=== PATIENT | male | born 1980 | race Caucasian/White ===

== ENCOUNTER 2017-03-23 21:33 | Observation (INO) | payer BC ==
[2017-03-23 22:22] LABS: #Basophils 0.1 thou/uL (0.0-0.2); #Eosinphils 0.2 thou/uL (0.0-0.7); #Lymphocytes 2.3 thou/uL (1.20-3.40); #Monocytes 0.3 thou/uL (0.11-0.59); #Neutrophils 4.3 thou/uL (1.40-6.50); %Basophils 1.3 % (0.0-1.0); %Eosinophils 3.2 % (0.0-10.0); %Monocytes 4.3 % (0.0-10.0); %Neutrophils 59.2 % (42.0-75.0); Mean Corpuscular HGB CONC 34.5 g/dL (32.0-36.0); Mean Corpuscular Hemoglobin 31.6 pg (27.0-31.0); Mean Corpuscular Volume 91.5 fl (80.0-94.0); Mean Platelet Volume 7.9 fL (7.4-10.4); Platelet Count 256 thou/uL (130-400); RBC Distribution Width 11.5 % (11.5-14.5); Red Blood Cell (RBC) Count 4.43 mill/uL (4.70-6.10); White Blood Cell (WBC) Count 7.3 thou/uL (4.8-10.8)
[2017-03-23 22:30] LABS: INR-International Normal Ratio 1.1; PTT 24.7 SEC (22.9-36.1); Prothrombin Time 14.1 SEC (12.0-14.7)
[2017-03-23 22:33] LABS: ALT (SGPT) 35 U/L (8-55); AST (SGOT) 22 U/L (5-34); Albumin 4.2 g/dL (3.5-5.0); Alkaline Phosphatase 68 U/L (40-150); Anion Gap 15 mmol/L (10-20); BUN (Urea Nitrogen) 14 mg/dL (8.9-20.6); Bilirubin, Total 0.5 mg/dL (0.2-1.2); Calc. Creatinine Clearance 0 mL/min (70-130); Calcium 9.2 mg/dL (7.8-10.44); Carbon Dioxide 23 mmol/L (22-29); Chloride 106 mmol/L (98-107); Estimated GFR-MDRD Greater than 90; Globulin 3.3 g/dL (2.4-3.5); Glucose 111 mg/dL (70-105); Potassium 3.5 mmol/L (3.5-5.1); Protein, Total 7.5 g/dL (6.0-8.3); Sodium 140 mmol/L (136-145)
[2017-03-24] MEDS ORDERED: GoLYTELY 4,000 ml Bottle PO SCH (00:30)
[2017-03-24] MEDS ORDERED: Ondansetron HCl/PF 4 MG/2 ML Vial IVP PRN ×2 (01:18→14:45)
[2017-03-24] MEDS ORDERED: Ondansetron ODT 4 MG TAB SL PRN (01:18)
[2017-03-24] MEDS ORDERED: Acetaminophen 325 MG TAB PO PRN (01:18)
[2017-03-24 01:53] VITALS: BMI 27.4
--- NOTE | 2017-03-24 03:36 | CON ---
DATE OF CONSULTATION: 03/23/2017 REASON FOR CONSULTATION: Hematochezia. CONSULTING PHYSICIAN: Dr. Ng HISTORY OF PRESENT ILLNESS: The patient is a 36-year-old male with past medical history of GERD, gou t, seasonal allergies and chronic diarrhea, presenting with complaints of hematochezia. He was recen tly seen in the GI clinic for the evaluation of chronic diarrhea. As part of the workup, a colonosco py was recommended and performed on 03/23/2017. During the course of the colonoscopy a large polyp w as seen in the sigmoid colon at approximately 35 cm past the anal verge. This polyp was subsequently removed with snare cautery polypectomy, but given the increased diameter of the polyp stalk a Hemocl ip was also placed; however, later yesterday evening he experienced onset of bright red blood per rec judy present both in the toilet and on the toilet paper. The amount of blood was approximately one cobos lf cup per bowel movement with approximately 3 bloody bowel movements since the colonoscopy earlier y morning. After the last bowel movement he did experience increased nausea, diaphoresis, and cold clammy skin that resolved immediately upon going outside into the cold air and has not had a fu rther recurrence. Of note, he has been taking diclofenac and colchicine for management of his gout, but had not taken colchicine since 01/2016 and diclofenac was recently taken approximately 5 days ago . Currently, he denies any nausea, vomiting, fevers, chills, abdominal pain, odynophagia, dysphagia, hematemesis or melena. REVIEW OF SYSTEMS: A 10 category review of systems was obtained with all responses negative except f or the pertinent positives as listed in the HPI. PAST MEDICAL HISTORY: As per HPI. PAST SURGICAL HISTORY: None. FAMILY HISTORY: Great aunt with colon cancer that was diagnosed in her 70s, prostate cancer (father, paternal grandfather), testicular cancer (cousin), and breast cancer (maternal grandmother). SOCIAL HISTORY: He denies any tobacco or illicit drug use. He will drink approximately 1-2 drinks e very 1-2 weeks. PHYSICAL EXAMINATION: VITAL SIGNS: Temperature 99.4, pulse 80, blood pressure 130/81, respiratory rate 17, satting 100% on room air. GENERAL: The patient is lying comfortably in bed in no acute distress. He is alert and oriented x4. NECK: Supple. No JVD noted. CARDIOVASCULAR: Tachycardic rate, but regular rhythm with no discernible murmurs, gallops or rubs. RESPIRATORY: Clear to auscultation bilaterally with no discernible wheezes or rales. ABDOMEN: Normoactive bowel sounds, soft, nontender, nondistended. EXTREMITIES: No cyanosis, clubbing or edema. LABORATORY DATA: CBC with a white blood cell count of 7.3, hemoglobin 14, hematocrit 40.6, platelets 256. Chemistry with a sodium of 140, potassium 3.5, chloride 106, CO2 23, BUN 14, creatinine 0.89, glucose 111, AST 22, ALT 35, alkaline phosphatase 68, total bilirubin 0.5. INR 1.1. IMAGING DATA: No current GI imaging studies are available for review. ASSESSMENT AND PLAN: The patient is a 36-year-old male with past medical history of GERD, gout, seas onal allergies and chronic diarrhea who underwent colonoscopy with polypectomy on 03/23/2017, now pre senting with hematochezia in the post-procedure setting. Post-polypectomy bleed. The patient is presenting with onset of bright red blood per rectum after cobos ving undergone a colonoscopy on 03/23/2017 with the removal of a large polyp within the sigmoid colon . Given the diameter of the polyp removed and the fact that it was a pedunculated polyp, the likelih ood of a vessel within the polyp itself is likely. At this point the most likely reason for his hemat ochezia would be bleeding from the polypectomy site despite the fact that a Hemoclip was placed earli er today to prevent such an occasion. RECOMMENDATIONS: 1. Would continue to trend H&H and transfuse as necessary to maintain an H&H of 7/21. 2. Will administer 2 liters of GoLYTELY as part of bowel prep in preparation for repeat colonoscopy and evaluation of the post-polypectomy site. 3. Would refrain from any anticoagulation for the current time. We will continue to follow. Please call with any questions.
[2017-03-24] MEDS: Sodium Chloride 0.9% 1,000 ML IV SCH ×3 (04:10→21:02)
[2017-03-24 05:01] LABS: #Basophils 0.1 thou/uL (0.0-0.2); #Eosinphils 0.2 thou/uL (0.0-0.7); #Lymphocytes 2.4 thou/uL (1.20-3.40); #Monocytes 0.5 thou/uL (0.11-0.59); #Neutrophils 4.3 thou/uL (1.40-6.50); %Basophils 0.8 % (0.0-1.0); %Eosinophils 2.7 % (0.0-10.0); %Lymphocytes 31.7 % (21.0-51.0); %Monocytes 7.2 % (0.0-10.0); %Neutrophils 57.7 % (42.0-75.0); Hemoglobin 12.6 g/dL (14.0-18.0); Mean Corpuscular HGB CONC 34.7 g/dL (32.0-36.0); Mean Corpuscular Hemoglobin 31.8 pg (27.0-31.0); Mean Corpuscular Volume 91.8 fl (80.0-94.0); Mean Platelet Volume 7.5 fL (7.4-10.4); Platelet Count 242 thou/uL (130-400); RBC Distribution Width 11.5 % (11.5-14.5); Red Blood Cell (RBC) Count 3.97 mill/uL (4.70-6.10); White Blood Cell (WBC) Count 7.5 thou/uL (4.8-10.8)
[2017-03-24 05:19] LABS: ALT (SGPT) 31 U/L (8-55); AST (SGOT) 18 U/L (5-34); Alkaline Phosphatase 66 U/L (40-150); Anion Gap 11 mmol/L (10-20); BUN (Urea Nitrogen) 15 mg/dL (8.9-20.6); Bilirubin, Total 0.5 mg/dL (0.2-1.2); Calc. Creatinine Clearance 162 mL/min (70-130); Calcium 9.3 mg/dL (7.8-10.44); Carbon Dioxide 29 mmol/L (22-29); Chloride 107 mmol/L (98-107); Estimated GFR-MDRD Greater than 90; Globulin 2.9 g/dL (2.4-3.5); Glucose 102 mg/dL (70-105); Potassium 4.1 mmol/L (3.5-5.1); Protein, Total 6.9 g/dL (6.0-8.3); Sodium 143 mmol/L (136-145)
[2017-03-24 05:54] LABS: INR-International Normal Ratio 1.1; Prothrombin Time 13.9 SEC (12.0-14.7)
--- NOTE | 2017-03-24 06:17 | HP ---
CHIEF COMPLAINT: Rectal bleeding. HISTORY OF PRESENT ILLNESS: A 36-year-old male with minimal past medical history who recently had a colonoscopy 03/23/2017 for persistent diarrhea. The patient states that he had a polyp removed and s ubsequently a staple placed in that area. Earlier today he went to the bathroom, had a pressure sens ation which he states is consistent with his usual abdominal pressure sensation associated with his d iarrhea. However, when he went to have a bowel movement he passed a clot-like material instead. He subsequently presented to the emergency department for rectal bleeding. At the time of my evaluation, the patient has no new complaints and is able to recall the history as noted above. REVIEW OF SYSTEMS: As per HPI. CONSTITUTIONAL: No fevers, no chills, no recent weight changes. HEENT: No headaches, dizziness or vision changes. CARDIOVASCULAR: No chest pain, dyspnea with exertion, chest pressure, left arm numbness or tingling. RESPIRATORY: No shortness of breath. No recent cough. No recent sinus congestion, postnasal drip. GASTROINTESTINAL: As per above. GENITOURINARY: Denies any dysuria or change in urine and quality. No new odor. MUSCULOSKELETAL: Denies any myalgias, arthralgias, or generalized fatigue or malaise that is new. Remainder of review of systems otherwise negative. PAST MEDICAL HISTORY: As per above. HOME MEDICATIONS: Cetirizine, Zyrtec, diclofenac, epinephrine. ALLERGIES: CLAVULANIC ACID and CASHEWS. FAMILY HISTORY: Denies any known family history of hyperpolyposis or early GI cancer. SOCIAL HISTORY: Denies any alcohol, tobacco or illicit drug use. Mother is with him at bedside. CODE STATUS: Full code status. PHYSICAL EXAMINATION: VITAL SIGNS: Temperature of 97.8, heart rate of 84, blood pressure 144/83, respirations 16, satting 95% on room air. GENERAL: The patient is awake, alert, conversant, lying in the hospital bed in no acute distress. HEENT: Normocephalic, atraumatic. Moist mucous membranes, equal ocular motions are intact. CARDIOVASCULAR: S1, S2. Pulses 2+ bilateral upper extremities, no pitting pedal edema. RESPIRATORY: Clear to auscultation. Reasonable air movement. No wheezes, rales or rhonchi. ABDOMEN: Positive bowel sounds, soft, nontender to palpation. LABORATORY AND IMAGING WBC 7.3, hemoglobin 14.0, hematocrit 40.6, platelets 256. PT 14.1, INR 1.1. Sodium 140, potassium 3.5, chloride 106, bicarbonate 23, BUN 14, creatinine 0.89, glucose 111, calciu m 9.2, total bilirubin 0.5, AST 22, ALT 35, alkaline phosphatase 68, total serum protein 7.5, albumin 4.2. ASSESSMENT AND PLAN: A 36-year-old male presenting with rectal bleed, status post colonoscopy with p olypectomy. 1. Rectal bleed. I appreciate GI consultation. It appears that the patient is currently planned fo r a repeat colonoscopy in the morning. He is currently on a bowel prep. I have discussed consent fo r blood products with the patient and he currently consents for blood products. We have discussed th e risks and benefits of a transfusion should he need it. Serial CBC q.6h., IV fluid 100 mL IV walker l saline. Two large bore IVs. Admit the patient to observation status to telemetry. Thank you for asking me to care for the patient.
[2017-03-24 09:21] LABS: Hemoglobin 11.7 g/dL (14.0-18.0)
[2017-03-24 12:25] LABS: Hemoglobin 8.9 g/dL (14.0-18.0)
[2017-03-24] MEDS ORDERED: Promethazine HCl 25 MG/ML VIAL SLOW IVP PRN (14:45)
[2017-03-24] MEDS ORDERED: Promethazine HCl 25 MG/ML VIAL IM PRN (14:45)
--- NOTE | 2017-03-24 14:59 | OP ---
PREOPERATIVE DIAGNOSIS: Gastrointestinal bleed. DESCRIPTION OF PROCEDURE: After informed consent was obtained, the patient was placed in the left la teral decubitus position. Anesthesia was administered per the Anesthesia Department. Forward-viewin g endoscope was inserted into the rectum. After perianal inspection, rectal exam were normal and pas sed to the cecum with ease. The cecum, ileocecal valve, and appendiceal orifice were normal. The pr ep was fair. Upon withdraw, the right-sided effluent was nonbloody, but the left side became progres sively bloody. In the sigmoid colon, a stalk was noted with a clip on it, this seemed to be the area of the active bleeding. A snare was put around the base of the stalk and the stalk was removed, ach ieving good hemostasis. A clip was then put on the base. The remainder of the sigmoid and rectum we re normal, although not fully visualized secondary to retained blood. ASSESSMENT: 1. Actively bleeding sigmoid stalk -- status post control of hemorrhage with polypectomy of the stal k. 2. Otherwise normal colonoscopy. RECOMMENDATIONS: 1. Serial hemoglobin and hematocrit. 2. Clear liquid diet.
[2017-03-24] MEDS ORDERED: PROPOFOL 200 MG/20 ML VIAL ONE (15:29)
[2017-03-24] MEDS ORDERED: PHENYLEPHRINE-NS 100 MCG/ML 10 ML SYRINGE ONE (15:29)
[2017-03-24 15:41] LABS: Hemoglobin 9.3 g/dL (14.0-18.0); Platelet Count 198 thou/uL (130-400)
[2017-03-24 18:37] LABS: Hemoglobin 8.6 g/dL (14.0-18.0)
--- NOTE | 2017-03-24 21:10 | EKG ---
Test Reason : AFTER CODE GREEN Blood Pressure : / mmHG Vent. Rate : 085 BPM Atrial Rate : 085 BPM P-R Int : 164 ms QRS Dur : 104 ms QT Int : 362 ms P-R-T Axes : 027 051 016 degrees QTc Int : 430 ms Normal sinus rhythm ST elevation, consider early repolarization, pericarditis, or injury Nonspecific T wave abnormality Abnormal ECG No previous ECGs available Confirmed by MELIZA SILVESTRE ([id number]) on 03/24/2017 9:10:25 PM Referred By: CHAN Confirmed By:MELIZA SILVESTRE
[2017-03-25 05:05] LABS: #Eosinphils 0.2 thou/uL (0.0-0.7); #Monocytes 0.3 thou/uL (0.11-0.59); #Neutrophils 2.8 thou/uL (1.40-6.50); %Basophils 0.9 % (0.0-1.0); %Eosinophils 3.4 % (0.0-10.0); %Lymphocytes 37.7 % (21.0-51.0); Hemoglobin 8.2 g/dL (14.0-18.0); Mean Corpuscular HGB CONC 35.1 g/dL (32.0-36.0); Mean Corpuscular Hemoglobin 32.5 pg (27.0-31.0); Mean Corpuscular Volume 92.5 fl (80.0-94.0); Mean Platelet Volume 8.2 fL (7.4-10.4); Platelet Count 185 thou/uL (130-400); RBC Distribution Width 11.7 % (11.5-14.5); Red Blood Cell (RBC) Count 2.52 mill/uL (4.70-6.10); White Blood Cell (WBC) Count 5.3 thou/uL (4.8-10.8)
[2017-03-25 05:20] LABS: Anion Gap 9 mmol/L (10-20); BUN (Urea Nitrogen) 6 mg/dL (8.9-20.6); Calc. Creatinine Clearance 191 mL/min (70-130); Calcium 8.2 mg/dL (7.8-10.44); Carbon Dioxide 26 mmol/L (22-29); Chloride 110 mmol/L (98-107); Estimated GFR-MDRD Greater than 90; Glucose 97 mg/dL (70-105); Magnesium 1.6 mg/dL (1.6-2.6); Potassium 3.8 mmol/L (3.5-5.1); Sodium 141 mmol/L (136-145)
[2017-03-25 07:52] VITALS: BP 129/62
[2017-03-25 07:54] VITALS: TEMP 96.9
--- NOTE | 2017-03-25 09:55 | PRG ---
DATE OF SERVICE: 03/25/2017 GI INPATIENT DAILY PROGRESS NOTE SUBJECTIVE: Sheng did well overnight. He has remained hemodynamically stable and he has had no fur ther bowel movements since just after his colonoscopy yesterday. There is no abdominal pain or feeli ng of fullness, no lightheadedness. Hemoglobin trended down marginally to 8.2, WBC 5.3, platelets 18 5. He is tolerating his diet. OBJECTIVE: VITAL SIGNS: Temperature 96.9, pulse 83, blood pressure 129/62, 96% oxygen saturation on room air. GENERAL: No acute distress. HEART: Regular rate and rhythm. LUNGS: Clear to auscultation bilaterally. ABDOMEN: Soft, nontender. EXTREMITIES: No peripheral edema. LABORATORY STUDIES: Hemoglobin 8.2, WBC 5.3, platelets 185. ASSESSMENT AND PLAN: 1. Post-polypectomy bleeding, status post endoscopic treatment with Hemoclip placement performed by Dr. Jung yesterday, now resolved. 2. Acute blood loss anemia. Sheng has had no further bleeding over the past 20 hours since his col onoscopy. We discussed he did lose a significant amount of blood and this will take some time for hi s blood counts to return to normal. I advised that he take an iron tablet twice a day and he will al so be taking a vitamin C supplement. This is in addition to the Protonix that I had prescribed him f or his reflux esophagitis. Still awaiting back results on biopsies that were taken a couple of days ago. I will plan to follow up closely with him in the next week or two in clinic with repeat CBC. F rom a GI standpoint, he is okay to discharge with no further evidence of overt bleeding.
--- NOTE | 2017-03-25 13:29 | DIS ---
DATE OF ADMISSION: 03/23/2017 DATE OF DISCHARGE: 03/25/2017 PRIMARY CARE PHYSICIAN: None. PRIMARY COMMISSARY AGENT: Franklyn Jay MD DISCHARGE DIAGNOSES: 1. Acute lower gastrointestinal bleed from polypectomy stump. 2. Acute blood loss anemia. 3. Large colonic polyp status post removal prior to admission. 4. Orthostasis. CONSULTATIONS: Gastroenterology, Dr. Shorty Jung and Dr. Franklyn Jay. PROCEDURES: Colonoscopy on 03/24/2017 with removal of polyps done, electrocautery, and new clip martha elizondo. HISTORY AND PHYSICAL: Mr. Alcantara is a 36-year-old gentleman who was referred to Dr. Jay as an outpat ient for colonoscopy. He was found to have a very large polyp present that was removed and clipped. Post-procedure, the patient developed bright red blood per rectum. He was subsequently admitted to [facility]. Hemoglobin on admission was 14. We were called for admission. HOSPITAL COURSE: The patient was seen and examined by Dr. Garza and placed on observation. Serial H&H s were ordered and GI was consulted. The patient was seen by Dr. Coleman in consultation initially, and scheduled for colonoscopy the followi . The patient had several bloody bowel movements through the morning, and at one point got up to use a bedside commode and actually passed out and a code green was called. The patient was given 2 liters of IV fluids as he had not been bolused in the ER and was only on 100 mL per hour for the previous 3-4 hours, and repeat H and H's were obtained. His hemoglobin dropped f rom 14 to 12.6, and then down from 12.6 to 8.9. He went for colonoscopy that day where the previous polypectomy stump was found to be bleeding despite being clipped. The stump was snared at its base a nd removed. The area was cauterized until no bleeding was evident, the clip was placed across. The patient tolerated the procedure well, had no further bleeding post-procedure. Today, the day of disc harge, his hemoglobin was down to 8.2, likely dilutional, and the patient was cleared for discharge b y GI for outpatient followup in a week. PHYSICAL EXAMINATION: The patient was seen and examined on the day of discharge. Discharge plan and disposition was discussed with the patient and his mother face to face at the bedside. DISCHARGE MEDICATIONS: 1. EpiPen as needed. 2. Diclofenac 75 mg p.o. b.i.d. p.r.n. 3. Zyrtec 10 mg p.o. daily. FOLLOWUP APPOINTMENTS: 1. Primary care physician in a week. 2. Dr. Jay next week. DISCHARGE ACTIVITY: As tolerated. DISCHARGE DIET: Regular. DISCHARGE CONDITION: Good. DISPOSITION: Discharged home via private vehicle.
== END 2017-03-25 10:20 | disposition home or self-care (01) ==
LOC: ERS 21:33 → 2SW 23:56
PROVIDERS: ADMIT Internal Medicine; ATTEND Internal Medicine
PROC: 0W3P8ZZ Control Bleeding in Gastrointestinal Tract, Via Natural or Artificial Opening Endoscopic (ICD-10-PCS; principal; 2017-03-24)
DX: K91.840 Postprocedural hemorrhage of a digestive system organ or structure following a digestive system procedure (principal); D62 Acute posthemorrhagic anemia; K21.9 Gastro-esophageal reflux disease without esophagitis; K52.9 Noninfective gastroenteritis and colitis, unspecified; J30.2 Other seasonal allergic rhinitis; Z88.8 Allergy status to other drugs, medicaments and biological substances; Z91.018 Allergy to other foods; Z98.890 Other specified postprocedural states
CPT/HCPCS: 36415; 36416; 80048; 80053; 83735; 85025; 85610; 85730; 86850; 86900; 86901; 88305; 93005; 93010; 96360; 96361; 99285; G0378; J2704